=== PATIENT | female | born 1960 | race Hispanic/Latino ===

== ENCOUNTER 2019-12-30 15:33 | Observation (INO) | payer BC, OTHER ==
[~2019-12-30] VITALS: Ht 152.4 cm; Wt 68.3 kg
[2019-12-30 16:16] LABS: BASOPHILS % (AUTO) 0.9 % (0.0-5.0); EOSINOPHILS % (AUTO) 2.4 % (0.0-8.0); LYMPHOCYTES % (AUTO) 36.6 % (21.0-51.0); MEAN CORPUSCULAR HEMOGLOBIN 32.8 pg (27.0-33.0); MEAN CORPUSCULAR HGB CONC 34.8 g/dL (32.0-36.0); MEAN CORPUSCULAR VOLUME 94.2 fL (79-99); NEUTROPHILS % (AUTO) 51.7 % (40.0-77.0); PLATELET COUNT (AUTO) 233 K/uL (130-400); RED BLOOD CELL COUNT(AUTO) 4.67 MIL/uL (4.00-5.50); RED CELL DISTRIBUTION WIDTH 12.5 % (11.0-15.5)
[2019-12-30 16:20] LABS: CARBON DIOXIDE 32 mmol/L (21-32); CHLORIDE 105 mmol/L (101-111); CREATININE 1.1 mg/dL (0.5-1.5); GLOMERULAR FILTR. RATE CALC 54 mL/min (>60); GLUCOSE,RANDOM 98 mg/dL (70-105); POTASSIUM 4.2 mmol/L (3.5-5.1); SODIUM SERUM 139 mmol/L (136-145); UREA NITROGEN, BLOOD 12 mg/dL (7-18)
[2019-12-30 16:21] LABS: APPEARANCE,URINE Clear (CLEAR); BILIRUBIN,URINE Negative (NEGATIVE); COLOR,URINE Yellow (YELLOW); GLUCOSE, URINE (UA) Negative (NEGATIVE); KETONES,URINE Negative (NEGATIVE); LEUKOCYTE ESTERASE ,URINE Trace (NEGATIVE); NITRATE,URINE Negative (NEGATIVE); OCCULT BLOOD,URINE Negative (NEGATIVE); PROTEIN,URINE Negative (NEGATIVE)
[2019-12-30 16:25] LABS: ALANINE AMINOTRANSFERASE 31 U/L (12-78); ALBUMIN 3.6 g/dL (3.5-5.0); ALCOHOL, BLOOD < 3 mg/dL (0-10); ASPARTATE AMINOTRANSFERASE 16 U/L (10-37); BILIRUBIN,TOTAL 0.3 mg/dL (0.2-1.0); CREATINE KINASE, TOTAL 72 U/L (21-232); TOTAL PROTEIN, SERUM 6.7 g/dL (6.0-8.3)
[2019-12-30 16:27] LABS: RBC,URINE 0-1 /HPF (0-1)
[2019-12-30 16:28] LABS: BACTERIA,URINE Rare /HPF (None Seen); SQUAMOUS EPITHELIAL CELL,UR Few /HPF (0-2)
[2019-12-30 16:29] LABS: AMPHET/METH SCREEN,URINE NEGATIVE (NEGATIVE); BARBITURATE SCREEN, URINE NEGATIVE (NEGATIVE); BENZODIAZEPINES SCREEN,URINE NEGATIVE (NEGATIVE); CANNABINOID SCREEN,URINE NEGATIVE (NEGATIVE); COCAINE SCREEN,URINE NEGATIVE (NEGATIVE); OPIATE SCREEN,URINE NEGATIVE (NEGATIVE); PHENCYCLIDINE SCREEN,URINE NEGATIVE (NEGATIVE)
[2019-12-30 16:31] LABS: INR 0.88 (0.85-1.15); PARTIAL THROMBOPLASTIN TIME 23.8 SEC (26.3-35.5); PROTHROMBIN TIME 9.5 SEC (9.6-11.6)
[2019-12-30] MEDS ORDERED: ASPIRIN 325 MG TABLET ONE (17:07)
[2019-12-30] MEDS ORDERED: HYDRALAZINE HCL 20 MG/ML VIAL IV PRN (17:30)
[2019-12-30] MEDS ORDERED: IOHEXOL-350 75 ML VIAL IV ONE (17:39)
--- NOTE | 2019-12-30 18:40 | NUR ---
PATIENT ARRIVED TO ROOM AT 1840. PATIENT AWAKE AND ALERT. TRANSFERRED TO BED . TECH ALSO PRESENT TO PERFORM CAROTID DOPPLER .
[2019-12-30 19:00] VITALS: BP 135/81
[2019-12-30 19:03] LABS: HEMOGLOBIN A1C 5.3 % (4.0-6.0)
[2019-12-31] VITALS (7 sets, daily range): BP systolic 117–153; BP diastolic 76–88
[2019-12-31 04:50] LABS: HEMATOCRIT 41.9 % (36-48); MEAN CORPUSCULAR HEMOGLOBIN 32.3 pg (27.0-33.0); MEAN CORPUSCULAR HGB CONC 34.8 g/dL (32.0-36.0); MEAN CORPUSCULAR VOLUME 92.7 fL (79-99); RED BLOOD CELL COUNT(AUTO) 4.52 MIL/uL (4.00-5.50); RED CELL DISTRIBUTION WIDTH 12.5 % (11.0-15.5); WHITE BLOOD COUNT (AUTO) 6.7 K/uL (4.8-10.8)
[2019-12-31 05:02] LABS: INR 0.93 (0.85-1.15); PROTHROMBIN TIME 10.1 SEC (9.6-11.6)
[2019-12-31 05:14] LABS: ALANINE AMINOTRANSFERASE 20 U/L (12-78); ALBUMIN 3.1 g/dL (3.5-5.0); ASPARTATE AMINOTRANSFERASE 15 U/L (10-37); BILIRUBIN,TOTAL 0.4 mg/dL (0.2-1.0); CARBON DIOXIDE 31 mmol/L (21-32); CHLORIDE 106 mmol/L (101-111); CHOLESTEROL 172 mg/dL (<200); CREATINE KINASE, TOTAL 50 U/L (21-232); GLOMERULAR FILTR. RATE CALC 60 mL/min (>60); GLUCOSE,RANDOM 90 mg/dL (70-105); HDL CHOLESTEROL 70 mg/dL (35-85); LDL DIRECT 86 mg/dL (0-99); MYOGLOBIN 36 ng/mL (10-92); POTASSIUM 4.2 mmol/L (3.5-5.1); SODIUM SERUM 141 mmol/L (136-145); TOTAL PROTEIN, SERUM 6.1 g/dL (6.0-8.3); TRIGLYCERIDES 72 mg/dL (30-200); TROPONIN I < 0.04 ng/mL (0.00-0.06); UREA NITROGEN, BLOOD 13 mg/dL (7-18)
--- NOTE | 2019-12-31 09:00 | NUR ---
DYSPHAGIA EVNATASHA COMPLETED. -S/S OF ASPIRATION. RECOMMEND REGULAR TEXTURE, THIN LIQUIDS; PILLS WHOLE WITH LIQUIDS. Addendum: 01/01/20 at 0847 by FELICITA MARTINEZ, [facility] ST Amended: Links added.
--- NOTE | 2019-12-31 09:15 | NUR ---
COGNITIVE-LINGUISTIC EVALUATION COMPLETED. WITHIN FUNCTIONAL LIMITS. EVALUATION: Pt AAOX3. Pt REQUESTS WANTS AND NEEDS INDEPENDENTLY. Pt INTELLIGIBLE AT 100% ACCURACY TO THE UNFAMILIAR LISTENER. Pt COMMUNICATING AT CONVERSATIONAL LEVEL WITH NO DEFICITS IDENTIFIED AT THIS TIME. Pt COMPLETED COGNITIVE-LINGUISTIC EVALUATION TARGETING: ORIENTATION, ATTENTION/CONCENTRATION, MEMORY (IMMEDIATE, SHORT-TERM AND LONG-TERM), PROBLEM SOLVING, LOGIC/REASONING/INFERENCE, THOUGHT ORGANIZATION, FUNCTIONAL MATH AND TELLING TIME. Pt ABLE TO COMPLETE TASKS WITH CORRECT AND TIMELY ANSWERS TO ALL SECTIONS. MOTOR SPEECH G-CODES: [id number] Addendum: 01/01/20 at 0852 by FELICITA MARTINEZ [facility] Amended: Links added.
[2019-12-31] MEDS: FAMOTIDINE/PF 20 MG/2 ML VIAL IV SCH ×2 (09:54→20:27)
[2019-12-31] MEDS: ASPIRIN 81MG TAB.CHEW PO SCH (09:55)
[2019-12-31] MEDS: ACETAMINOPHEN 325 MG TAB PO PRN ×2 (09:59→20:28)
--- NOTE | 2019-12-31 13:00 | NUR ---
MET W PATIENT FOR D/C PLANNING STATES LIVES W DAUGHTER [place] [phone], IS ACTIVE, EMPLOYED, DRIVES, NO DME- STATES HAS TINGLING TO LEFT ARM, NEURO RESULTS SO FAR NEGATIVE PATIENT WHEN ASKS STATES LIFTS WEIGHTS. DCP HOME, NO DC NEEDS ANTICIPATED Addendum: 12/31/19 at 1441 by KALINA MONTERROSO RN CM Amended: Links added.
[2019-12-31] MEDS ORDERED: CLOPIDOGREL BISULFATE 75 MG TAB PO SCH (14:00)
--- NOTE | 2019-12-31 16:39 | NUR ---
RD NOTIFICATION Pt admitted with possible ischemic stroke. Diet held pending ST evaluation. Pt history of Talavera's Palsy, HTN. Overweight status. Monitored labs: Ca 8.4, Alb 3.1. Recommend follow Speech Therapy diet modification instructions RD to follow up with possible Stroke Nutrition education RD to continue to monitor. Please notify as additional nutrition concerns arise. Thank you.
[2019-12-31] MEDS ORDERED: ATORVASTATIN CALCIUM 20 MG TABLET PO SCH (21:00)
[2020-01-01 04:00] VITALS: BP 132/86
[2020-01-01 07:30] VITALS: BP 143/78
--- NOTE | 2020-01-01 08:00 | NUR ---
PT AAO X 3 REVIEW PLAN OF CARE. DENIES ANY DIZZNESS V/S REVIEW. NEURO .ASSESSMENT WITH NO RESIDUALS STRONG ARMS LEGS MOVEMENT . REVIEW FALL RISK AND CALL LIGHT IN REACH..
[2020-01-01] MEDS: FAMOTIDINE/PF 20 MG/2 ML VIAL IV SCH (08:17)
[2020-01-01] MEDS: ASPIRIN 81MG TAB.CHEW PO SCH (08:17)
[2020-01-01] MEDS ORDERED: CLOPIDOGREL BISULFATE 75 MG TAB PO SCH (09:00)
[2020-01-01 11:00] VITALS: BP 126/83
--- NOTE | 2020-01-01 15:00 | NUR ---
NUTRITION EDUCATION TRENA PROVIDED STROKE NUTRITION EDUCATION TO PATIENT PRIOR TO DISCHARGE. PT WAS RECEPTIVE TO NUTRITION HANDOUTS ALTHOUGH DEMONSTRATES KNOWLEDGE OF HEART HEALTHY DIET AND SHARES PLANNED WEIGHT LOSS ACHIEVED THROUGH HEALTHY DIET AND EXERCISE. Addendum: 01/01/20 at [address] Amended: Links added.
--- NOTE | 2020-01-01 16:00 | NUR ---
DISCHARGE PENDING NO V/S Addendum: 01/01/20 at 1655 by MAXIMUS WHITMORE RN RN Amended: Links added.
--- NOTE | 2020-01-01 16:05 | NUR ---
FOLLOW UP COMPLETED. Pt CURRENTLY AT BASELINE TOLERATING REGULAR TEXTURE, THIN LIQUID DIET WITH NO OVERT S/S OF ASPIRATION. SKILLED SPEECH THERAPY IS NOT WARRANTED AT THIS TIME. Addendum: 01/01/20 at 1607 by FELICITA MARTINEZ, [facility] Amended: Links added.
[2020-01-01] MEDS ORDERED: CLOP75TA14 PO (16:20)
[2020-01-01] MEDS ORDERED: ATOR20TA65 PO (16:20)
--- NOTE | 2020-01-01 16:45 | NUR ---
SL TO HER RAC WAS DC , NOTED NO HEMATOMA A SM PRESSURE DRSG APPLICATION ON.
--- NOTE | 2020-01-01 17:30 | NUR ---
DISCHARGE SUMMARY WAS REVIEW. AND FAMILY HERE , AND . DISCHARGE HOME.
== END 2020-01-01 18:20 | disposition home or self-care (01) ==
LOC: EDH 15:33 → EDHIP 17:22 → 3DH 18:08
PROVIDERS: ADMIT Family Medicine; ATTEND Family Medicine
DX: I63.9 Cerebral infarction, unspecified (principal); I16.0 Hypertensive urgency; I10 Essential (primary) hypertension; Z79.82 Long term (current) use of aspirin; Z79.899 Other long term (current) drug therapy
CPT/HCPCS: 36415 ×2; 70450; 70496; 70498; 70551; 71045; 80053 ×2; 80061; 80305; 81001; 82550 ×2; 82948; 83036; 83874; 84484 ×2; 85025; 85027; 85610 ×2; 85651; 85730; 92522; 92610; 93005; 93356; 93880; 96374; 96376 ×2; 99291; C8929; G0378 ×8; J3490 ×3; Q9967

== ENCOUNTER 2020-02-27 07:43 | Emergency (ER) | payer BC, OTHER ==
[~2020-02-27 07:43] MED LIST: ATOR20TA65 PO; CLOP75TA14 PO
== END 2020-02-27 08:20 | disposition home or self-care (01) ==
LOC: EDH 07:43
DX: G44.229 Chronic tension-type headache, not intractable (principal); R03.0 Elevated blood-pressure reading, without diagnosis of hypertension; E78.00 Pure hypercholesterolemia, unspecified; F41.9 Anxiety disorder, unspecified; Z86.73 Personal history of transient ischemic attack (TIA), and cerebral infarction without residual deficits; Z79.899 Other long term (current) drug therapy; Z98.51 Tubal ligation status
CPT/HCPCS: 93005

== ENCOUNTER 2020-08-03 08:31 | Emergency (ER) | payer BC ==
[2020-08-03 08:46] LABS: BASOPHILS % (AUTO) 1.2 % (0.0-5.0); EOSINOPHILS % (AUTO) 3.2 % (0.0-8.0); HEMATOCRIT 44.5 % (36-48); LYMPHOCYTES % (AUTO) 32.4 % (21.0-51.0); MEAN CORPUSCULAR HEMOGLOBIN 32.4 pg (27.0-33.0); MEAN CORPUSCULAR HGB CONC 34.8 g/dL (32.0-36.0); MEAN CORPUSCULAR VOLUME 93.1 fL (79-99); MONOCYTES % (AUTO) 8.3 % (3.0-13.0); NEUTROPHILS % (AUTO) 54.8 % (40.0-77.0); PLATELET COUNT (AUTO) 204 K/uL (130-400); RED BLOOD CELL COUNT(AUTO) 4.78 MIL/uL (4.00-5.50); RED CELL DISTRIBUTION WIDTH 12.9 % (11.0-15.5); WHITE BLOOD COUNT (AUTO) 6.8 K/uL (4.8-10.8)
[2020-08-03] MEDS ORDERED: NITROGLYCERIN 1GM/1 INCH PACKET TD ONE (08:52)
[2020-08-03] MEDS ORDERED: ALPRAZOLAM 0.25 MG TABLET ONE (08:53)
[2020-08-03 09:00] LABS: INR 0.98 (0.85-1.15); PROTHROMBIN TIME 10.7 SEC (9.6-11.6)
[2020-08-03 09:01] LABS: PARTIAL THROMBOPLASTIN TIME 23.5 SEC (26.3-35.5)
[2020-08-03 09:04] LABS: ALBUMIN 3.8 g/dL (3.5-5.0); BILIRUBIN,TOTAL 0.5 mg/dL (0.2-1.0); CREATININE 0.9 mg/dL (0.5-1.5); POTASSIUM 3.8 mmol/L (3.5-5.1)
== END 2020-08-03 11:29 | disposition home or self-care (01) ==
LOC: EDH 08:31
DX: R07.89 Other chest pain (principal); R51.9 Headache, unspecified; F41.9 Anxiety disorder, unspecified; I10 Essential (primary) hypertension; E78.00 Pure hypercholesterolemia, unspecified; Z86.73 Personal history of transient ischemic attack (TIA), and cerebral infarction without residual deficits; Z98.51 Tubal ligation status; Z79.899 Other long term (current) drug therapy
CPT/HCPCS: 36415; 71045; 80053; 82550; 84484; 85025; 85610; 85730; 93005

== ENCOUNTER 2020-11-01 12:56 | Emergency (ER) | payer BC ==
[2020-11-01 12:57] VITALS: BP 135/63
[2020-11-01 16:35] VITALS: BP 124/86
[2020-11-01 16:38] LABS: HEMATOCRIT 43.7 % (36-48); MEAN CORPUSCULAR HEMOGLOBIN 33.3 pg (27.0-33.0); MEAN CORPUSCULAR HGB CONC 34.8 g/dL (32.0-36.0); MEAN CORPUSCULAR VOLUME 95.8 fL (79-99); PLATELET COUNT (AUTO) 208 K/uL (130-400); RED BLOOD CELL COUNT(AUTO) 4.56 MIL/uL (4.00-5.50); RED CELL DISTRIBUTION WIDTH 13.1 % (11.0-15.5); WHITE BLOOD COUNT (AUTO) 6.3 K/uL (4.8-10.8)
[2020-11-01 16:50] LABS: CREATININE 0.8 mg/dL (0.5-1.5); POTASSIUM 3.6 mmol/L (3.5-5.1)
[2020-11-01 16:57] LABS: ALBUMIN 3.7 g/dL (3.5-5.0); BILIRUBIN,TOTAL 0.4 mg/dL (0.2-1.0); TOTAL PROTEIN, SERUM 6.8 g/dL (6.0-8.3)
[2020-11-01] MEDS ORDERED: ONDANSETRON 4MG INJ IVP ONE (17:00)
[2020-11-01] MEDS ORDERED: ACETAMINOPHEN 325 MG TAB PO ONE (17:00)
[2020-11-01 17:09] LABS: AMPHET/METH SCREEN,URINE NEGATIVE (NEGATIVE); BARBITURATE SCREEN, URINE NEGATIVE (NEGATIVE); BENZODIAZEPINES SCREEN,URINE NEGATIVE (NEGATIVE); CANNABINOID SCREEN,URINE NEGATIVE (NEGATIVE); COCAINE SCREEN,URINE NEGATIVE (NEGATIVE); OPIATE SCREEN,URINE NEGATIVE (NEGATIVE); PHENCYCLIDINE SCREEN,URINE NEGATIVE (NEGATIVE)
[2020-11-01 17:12] LABS: INR 0.95 (0.85-1.15); PROTHROMBIN TIME 10.4 SEC (9.6-11.6)
[2020-11-01 17:14] LABS: PARTIAL THROMBOPLASTIN TIME 23.9 SEC (26.3-35.5)
[2020-11-01 17:19] LABS: AMYLASE 64 U/L (25-115); CREATINE KINASE, TOTAL 58 U/L (21-232); LIPASE 118 U/L (114-286)
[2020-11-01 17:48] LABS: BAND NEUTROPHILS % (MANUAL) 1 % (0-2); EOSINOPHILS % (MANUAL) 2 % (1-6); LYMPHOCYTES % (MANUAL) 28 % (22-44); MAN.DIFF COMMENT-IMPRESSION MANUAL DIFFERENTIAL; MONOCYTES % (MANUAL) 13 % (2-9); REACTIVE LYMPHOCYTES 10 % (0-0); SEGMENTED NEUTROPHILS % 46 % (40-70)
[2020-11-01 19:32] LABS: MAGNESIUM 2.1 mg/dL (1.80-2.40); PHOSPHORUS 4.4 mg/dL (2.5-4.9)
[2020-11-01] MEDS ORDERED: MECL-160 PO (19:46)
[2020-11-01 20:20] VITALS: BP 124/84
== END 2020-11-01 20:21 | disposition home or self-care (01) ==
LOC: EDH 12:56
DX: R07.89 Other chest pain (principal); R51.9 Headache, unspecified; R20.2 Paresthesia of skin; R53.83 Other fatigue; Z20.822 Contact with and (suspected) exposure to COVID-19; I10 Essential (primary) hypertension; Z79.02 Long term (current) use of antithrombotics/antiplatelets; Z79.899 Other long term (current) drug therapy; Z86.73 Personal history of transient ischemic attack (TIA), and cerebral infarction without residual deficits
CPT/HCPCS: 36415; 70450; 71045; 80053; 80305; 82150; 82550; 83690; 83735; 83880; 84100; 84484 ×2; 85025; 85610; 85730; 87635; 87804 ×2; 87880; 93005; 99285; C9803; J2405

== ENCOUNTER 2020-12-19 16:09 | Inpatient (IN) | payer BC ==
[~2020-12-19] VITALS: Ht 149.9 cm; Wt 70.8 kg
[~2020-12-19 16:09] MED LIST changes: +MECL-160 PO
[2020-12-19 16:18] VITALS: BP 118/80
[2020-12-19 16:46] LABS: ABG BASE EXCESS 0.2 mmol/L (-2.0-3.0); ABG HCO3 23.5 mmol/L (21.0-28.0); ABG OXYGEN SATURATION 74.7 % (95.0-99.0); ABG PCO2 34 mmHg (32-45)
[2020-12-19 16:59] LABS: BASOPHILS % (AUTO) 0.1 % (0.0-5.0); HEMATOCRIT 43.3 % (36-48); LYMPHOCYTES % (AUTO) 11.2 % (21.0-51.0); MEAN CORPUSCULAR HEMOGLOBIN 33.5 pg (27.0-33.0); MEAN CORPUSCULAR HGB CONC 35.8 g/dL (32.0-36.0); MEAN CORPUSCULAR VOLUME 93.5 fL (79-99); NEUTROPHILS % (AUTO) 81.1 % (40.0-77.0); PLATELET COUNT (AUTO) 178 K/uL (130-400); RED BLOOD CELL COUNT(AUTO) 4.63 MIL/uL (4.00-5.50); RED CELL DISTRIBUTION WIDTH 12.2 % (11.0-15.5); WHITE BLOOD COUNT (AUTO) 7.1 K/uL (4.8-10.8)
[2020-12-19 17:06] LABS: ABG BASE EXCESS -0.1 mmol/L (-2.0-3.0); ABG HCO3 22.5 mmol/L (21.0-28.0); ABG OXYGEN SATURATION 95.1 % (95.0-99.0); ABG PCO2 32 mmHg (32-45)
[2020-12-19 17:14] LABS: CREATININE 0.9 mg/dL (0.5-1.5); POTASSIUM 3.7 mmol/L (3.5-5.1)
[2020-12-19 17:18] LABS: ALBUMIN 2.8 g/dL (3.5-5.0); BILIRUBIN,TOTAL 0.8 mg/dL (0.2-1.0); CRP QUANTITATIVE 104.9 mg/L (0.00-9.0); TOTAL PROTEIN, SERUM 6.7 g/dL (6.0-8.3)
[2020-12-19 17:21] LABS: B-TYPE NATRIURETIC PEPTIDE 17 pg/mL (0-100)
[2020-12-19] MEDS ORDERED: LACTATED RINGERS 1000ML 500 ML IV SCH (19:00)
[2020-12-19] MEDS ORDERED: ERGOCALCIFEROL (VITAMIN D2) 50,000 UNIT CAPSULE PO ONE (19:00)
[2020-12-19] MEDS ORDERED: [UNRECOGNIZED DRUG - OTHER] MISC SCH (19:00)
[2020-12-19] MEDS ORDERED: ACETAMINOPHEN 325 MG TAB PO PRN (19:00)
[2020-12-19] MEDS ORDERED: BARICITINIB MISC SCH (19:00)
[2020-12-19] MEDS ORDERED: COMPOUND IV REFRIGERATED 1 EACH IVSOLN MISC PRN (19:30)
[2020-12-19] MEDS ORDERED: REMDESIVIR (EUA) 520 200 MG in 0.9% NACL 250ML 250 ML IV SCH (20:00)
[2020-12-19] MEDS: DOXYCYCLINE 100MG+NS 250ML IV SCH (20:04)
[2020-12-19] MEDS: CEFTRIAXONE 1G VIAL IVP SCH (20:04)
[2020-12-19] MEDS: DEXAMETHASONE SOD PHOSPHATE 4 MG/ML 1ML VIAL IVP SCH (20:04)
[2020-12-19] MEDS: ALBUTEROL INHALER 90MCG/INH IH SCH (20:04)
[2020-12-19 20:53] VITALS: BP 96/65
[2020-12-20 00:53] VITALS: BP 103/60
[2020-12-20] MEDS: ALBUTEROL INHALER 90MCG/INH IH SCH ×4 (00:55→19:24)
[2020-12-20 05:02] LABS: BASOPHILS % (AUTO) 0.3 % (0.0-5.0); HEMATOCRIT 41.9 % (36-48); MEAN CORPUSCULAR HEMOGLOBIN 32.2 pg (27.0-33.0); MEAN CORPUSCULAR HGB CONC 34.8 g/dL (32.0-36.0); MEAN CORPUSCULAR VOLUME 92.5 fL (79-99); MONOCYTES % (AUTO) 4.3 % (3.0-13.0); NEUTROPHILS % (AUTO) 78.8 % (40.0-77.0); PLATELET COUNT (AUTO) 193 K/uL (130-400); RED BLOOD CELL COUNT(AUTO) 4.53 MIL/uL (4.00-5.50); RED CELL DISTRIBUTION WIDTH 12.2 % (11.0-15.5); WHITE BLOOD COUNT (AUTO) 3.3 K/uL (4.8-10.8)
[2020-12-20 05:15] LABS: ABG HCO3 24.1 mmol/L (21.0-28.0); ABG PCO2 36 mmHg (32-45)
[2020-12-20 05:16] LABS: ABG BASE EXCESS 0.6 mmol/L (-2.0-3.0)
[2020-12-20 05:21] LABS: ALBUMIN 2.5 g/dL (3.5-5.0); BILIRUBIN,TOTAL 0.6 mg/dL (0.2-1.0); CREATININE 0.9 mg/dL (0.5-1.5); CRP QUANTITATIVE 105.6 mg/L (0.00-9.0); TOTAL PROTEIN, SERUM 5.9 g/dL (6.0-8.3)
[2020-12-20] MEDS: REMDESIVIR LABS MISC SCH (06:00)
[2020-12-20 06:05] VITALS: BP 96/65
[2020-12-20] MEDS: DOXYCYCLINE 100MG+NS 250ML IV SCH ×2 (07:00→18:34)
[2020-12-20 08:30] VITALS: BP 94/57
[2020-12-20] MEDS: CEFTRIAXONE 1G VIAL IVP SCH ×2 (08:53→18:34)
[2020-12-20] MEDS: BARICITINIB (EUA) 2 MG TABLET PO SCH (08:53)
[2020-12-20] MEDS: FAMOTIDINE 20MG TAB PO SCH (08:53)
[2020-12-20] MEDS: ASCORBIC ACID 500 MG TAB PO SCH (08:54)
[2020-12-20] MEDS: BENZONATATE 100 MG CAPSULE PO PRN (08:59)
[2020-12-20] MEDS ORDERED: ENOXAPARIN SODIUM 40 MG/0.4 ML SYRINGE SQ SCH (09:00)
[2020-12-20] MEDS: ZINC SULFATE 220 CAPSULE PO SCH (09:07)
[2020-12-20] MEDS ORDERED: ONDANSETRON 4MG INJ ONE ×2 (12:08→18:25)
[2020-12-20 12:54] VITALS: BP 132/66
[2020-12-20] MEDS: GUAIFENESIN-DM 200/20 MG 10 ML PO PRN (12:54)
[2020-12-20] MEDS: DEXAMETHASONE SOD PHOSPHATE 4 MG/ML 1ML VIAL IVP SCH (18:34)
[2020-12-20] MEDS: REMDESIVIR (EUA) 520 100 MG in 0.9% NACL 250ML 250 ML IV SCH (20:46)
[2020-12-20] MEDS: ENOXAPARIN SODIUM 40 MG/0.4 ML SYRINGE SQ SCH (20:47)
[2020-12-20 23:42] VITALS: BP 93/53
[2020-12-21] MEDS: ALBUTEROL INHALER 90MCG/INH IH SCH ×4 (00:52→20:38)
[2020-12-21] MEDS: BENZONATATE 100 MG CAPSULE PO PRN (04:55)
[2020-12-21 04:57] VITALS: BP 102/73
[2020-12-21 05:28] LABS: HEMATOCRIT 39.9 % (36-48); LYMPHOCYTES % (AUTO) 12.7 % (21.0-51.0); MEAN CORPUSCULAR HEMOGLOBIN 33.1 pg (27.0-33.0); MEAN CORPUSCULAR HGB CONC 35.8 g/dL (32.0-36.0); MEAN CORPUSCULAR VOLUME 92.4 fL (79-99); MONOCYTES % (AUTO) 6.2 % (3.0-13.0); NEUTROPHILS % (AUTO) 80.3 % (40.0-77.0); PLATELET COUNT (AUTO) 225 K/uL (130-400); RED BLOOD CELL COUNT(AUTO) 4.32 MIL/uL (4.00-5.50); WHITE BLOOD COUNT (AUTO) 7.6 K/uL (4.8-10.8)
[2020-12-21 05:49] LABS: ALBUMIN 2.4 g/dL (3.5-5.0); BILIRUBIN,TOTAL 0.4 mg/dL (0.2-1.0); CREATININE 0.8 mg/dL (0.5-1.5); CRP QUANTITATIVE 43.9 mg/L (0.00-9.0); POTASSIUM 4.2 mmol/L (3.5-5.1)
[2020-12-21] MEDS: REMDESIVIR LABS MISC SCH (06:00)
[2020-12-21 08:00] VITALS: BP 101/62
[2020-12-21] MEDS: DOXYCYCLINE 100MG+NS 250ML IV SCH (08:32)
[2020-12-21] MEDS: CEFTRIAXONE 1G VIAL IVP SCH (08:32)
[2020-12-21] MEDS: BARICITINIB (EUA) 2 MG TABLET PO SCH (08:33)
[2020-12-21] MEDS: ZINC SULFATE 220 CAPSULE PO SCH (08:33)
[2020-12-21] MEDS: FAMOTIDINE 20MG TAB PO SCH (08:33)
[2020-12-21] MEDS: ASCORBIC ACID 500 MG TAB PO SCH (08:33)
[2020-12-21] MEDS: ENOXAPARIN SODIUM 40 MG/0.4 ML SYRINGE SQ SCH (08:34)
[2020-12-21] MEDS: GUAIFENESIN-DM 200/20 MG 10 ML PO PRN ×2 (09:30→16:00)
[2020-12-21 11:32] VITALS: BP 110/70
[2020-12-21 15:35] VITALS: BP 111/70
[2020-12-21] MEDS ORDERED: ACETAMINOPHEN 325 MG TAB PO PRN (18:30)
[2020-12-21 19:28] VITALS: BP 110/70
[2020-12-21] MEDS: DEXAMETHASONE SOD PHOSPHATE 4 MG/ML 1ML VIAL IVP SCH (20:38)
[2020-12-21] MEDS: REMDESIVIR (EUA) 520 100 MG in 0.9% NACL 250ML 250 ML IV SCH (20:38)
[2020-12-22] MEDS: ALBUTEROL INHALER 90MCG/INH IH SCH ×4 (00:48→20:55)
[2020-12-22 01:00] VITALS: BP 112/60
[2020-12-22] MEDS: REMDESIVIR LABS MISC SCH (06:00)
[2020-12-22 07:00] LABS: HEMATOCRIT 41.8 % (36-48); LYMPHOCYTES % (AUTO) 12.2 % (21.0-51.0); MEAN CORPUSCULAR HEMOGLOBIN 33.2 pg (27.0-33.0); MEAN CORPUSCULAR HGB CONC 35.6 g/dL (32.0-36.0); MEAN CORPUSCULAR VOLUME 93.1 fL (79-99); MONOCYTES % (AUTO) 5.6 % (3.0-13.0); NEUTROPHILS % (AUTO) 81.8 % (40.0-77.0); PLATELET COUNT (AUTO) 269 K/uL (130-400); RED BLOOD CELL COUNT(AUTO) 4.49 MIL/uL (4.00-5.50); WHITE BLOOD COUNT (AUTO) 6.8 K/uL (4.8-10.8)
[2020-12-22 07:26] LABS: ALBUMIN 2.5 g/dL (3.5-5.0); BILIRUBIN,TOTAL 0.4 mg/dL (0.2-1.0); CREATININE 0.8 mg/dL (0.5-1.5); CRP QUANTITATIVE 16.4 mg/L (0.00-9.0); POTASSIUM 4.1 mmol/L (3.5-5.1)
[2020-12-22 07:50] VITALS: BP 113/62
[2020-12-22] MEDS: CLOPIDOGREL 75MG TAB PO SCH (08:22)
[2020-12-22] MEDS: ASCORBIC ACID 500 MG TAB PO SCH (08:22)
[2020-12-22] MEDS: FAMOTIDINE 20MG TAB PO SCH (08:22)
[2020-12-22] MEDS: ZINC SULFATE 220 CAPSULE PO SCH (08:22)
[2020-12-22] MEDS: ENOXAPARIN SODIUM 40 MG/0.4 ML SYRINGE SQ SCH (08:23)
[2020-12-22] MEDS ORDERED: ALPR0.5T PO (09:53)
[2020-12-22] MEDS ORDERED: LISI-809 PO (09:53)
[2020-12-22] MEDS: BARICITINIB (EUA) 2 MG TABLET PO SCH (09:54)
[2020-12-22 11:40] VITALS: BP 114/70
[2020-12-22 16:00] VITALS: BP 112/69
[2020-12-22] MEDS ORDERED: ONDANSETRON 4MG INJ IVP PRN (16:30)
[2020-12-22 20:00] VITALS: BP 102/63
[2020-12-22] MEDS: DEXAMETHASONE SOD PHOSPHATE 4 MG/ML 1ML VIAL IVP SCH (20:49)
[2020-12-22] MEDS: REMDESIVIR (EUA) 520 100 MG in 0.9% NACL 250ML 250 ML IV SCH (20:49)
[2020-12-22] MEDS: GUAIFENESIN-DM 200/20 MG 10 ML PO PRN (21:06)
[2020-12-22 23:26] VITALS: BP 103/70
[2020-12-23] MEDS: ALBUTEROL INHALER 90MCG/INH IH SCH ×4 (01:34→19:47)
[2020-12-23] MEDS: GUAIFENESIN-DM 200/20 MG 10 ML PO PRN ×3 (01:34→19:46)
[2020-12-23 04:00] VITALS: BP 109/68
[2020-12-23 05:19] LABS: BASOPHILS % (AUTO) 0.1 % (0.0-5.0); EOSINOPHILS % (AUTO) 1.9 % (0.0-8.0); HEMATOCRIT 42.5 % (36-48); LYMPHOCYTES % (AUTO) 9.7 % (21.0-51.0); MEAN CORPUSCULAR HEMOGLOBIN 32.6 pg (27.0-33.0); MEAN CORPUSCULAR HGB CONC 34.6 g/dL (32.0-36.0); MEAN CORPUSCULAR VOLUME 94.2 fL (79-99); MONOCYTES % (AUTO) 5.9 % (3.0-13.0); NEUTROPHILS % (AUTO) 82.1 % (40.0-77.0); PLATELET COUNT (AUTO) 258 K/uL (130-400); RED BLOOD CELL COUNT(AUTO) 4.51 MIL/uL (4.00-5.50); RED CELL DISTRIBUTION WIDTH 12.2 % (11.0-15.5)
[2020-12-23 05:43] LABS: ALBUMIN 2.4 g/dL (3.5-5.0); BILIRUBIN,TOTAL 0.5 mg/dL (0.2-1.0); CREATININE 0.8 mg/dL (0.5-1.5); POTASSIUM 4.5 mmol/L (3.5-5.1); TOTAL PROTEIN, SERUM 5.7 g/dL (6.0-8.3)
[2020-12-23] MEDS: REMDESIVIR LABS MISC SCH (06:00)
[2020-12-23 08:00] VITALS: BP 100/59
[2020-12-23] MEDS: FAMOTIDINE 20MG TAB PO SCH (09:52)
[2020-12-23] MEDS: BARICITINIB (EUA) 2 MG TABLET PO SCH (09:52)
[2020-12-23] MEDS: ASCORBIC ACID 500 MG TAB PO SCH (09:52)
[2020-12-23] MEDS: ENOXAPARIN SODIUM 40 MG/0.4 ML SYRINGE SQ SCH (09:53)
[2020-12-23] MEDS: CLOPIDOGREL 75MG TAB PO SCH (09:53)
[2020-12-23] MEDS: ZINC SULFATE 220 CAPSULE PO SCH (09:53)
[2020-12-23 12:00] VITALS: BP 103/66
[2020-12-23 16:00] VITALS: BP 107/69
[2020-12-23] MEDS: DEXAMETHASONE SOD PHOSPHATE 4 MG/ML 1ML VIAL IVP SCH (19:47)
[2020-12-23] MEDS: REMDESIVIR (EUA) 520 100 MG in 0.9% NACL 250ML 250 ML IV SCH (19:47)
[2020-12-23 20:00] VITALS: BP 101/65
[2020-12-23 23:59] VITALS: BP 94/54
[2020-12-24] MEDS: ALBUTEROL INHALER 90MCG/INH IH SCH ×2 (01:00→06:12)
[2020-12-24 03:34] VITALS: BP 99/61
[2020-12-24 04:47] LABS: HEMATOCRIT 39.4 % (36-48); LYMPHOCYTES % (AUTO) 9.1 % (21.0-51.0); MEAN CORPUSCULAR HEMOGLOBIN 32.6 pg (27.0-33.0); MEAN CORPUSCULAR HGB CONC 35.5 g/dL (32.0-36.0); MEAN CORPUSCULAR VOLUME 91.8 fL (79-99); NEUTROPHILS % (AUTO) 85.1 % (40.0-77.0); PLATELET COUNT (AUTO) 275 K/uL (130-400); RED BLOOD CELL COUNT(AUTO) 4.29 MIL/uL (4.00-5.50); RED CELL DISTRIBUTION WIDTH 12.1 % (11.0-15.5); WHITE BLOOD COUNT (AUTO) 6.4 K/uL (4.8-10.8)
[2020-12-24 05:15] LABS: ALBUMIN 2.3 g/dL (3.5-5.0); BILIRUBIN,TOTAL 0.6 mg/dL (0.2-1.0); CREATININE 0.8 mg/dL (0.5-1.5); POTASSIUM 4.3 mmol/L (3.5-5.1); TOTAL PROTEIN, SERUM 5.5 g/dL (6.0-8.3)
[2020-12-24 08:00] VITALS: BP 106/63
[2020-12-24] MEDS ORDERED: APIX2.5T PO (08:51)
[2020-12-24] MEDS ORDERED: DEXA6TAB PO (08:51)
[2020-12-24] MEDS ORDERED: PANT40TA55 PO (08:51)
[2020-12-24] MEDS: ZINC SULFATE 220 CAPSULE PO SCH (09:25)
[2020-12-24] MEDS: ENOXAPARIN SODIUM 40 MG/0.4 ML SYRINGE SQ SCH (09:25)
[2020-12-24] MEDS: ASCORBIC ACID 500 MG TAB PO SCH (09:25)
[2020-12-24] MEDS: BARICITINIB (EUA) 2 MG TABLET PO SCH (09:25)
[2020-12-24] MEDS: CLOPIDOGREL 75MG TAB PO SCH (09:26)
[2020-12-24] MEDS: FAMOTIDINE 20MG TAB PO SCH (09:26)
[2020-12-24 09:36] LABS: HEMOGLOBIN A1C 5.8 % (4.0-6.0)
== END 2020-12-24 15:30 | disposition home or self-care (01) | DRG 177 ==
LOC: EDH 16:09 → EDHIP 18:42 → 4AH 12-22 13:45
PROVIDERS: ADMIT Internal Medicine; ATTEND Internal Medicine
PROC: XW033E5 Introduction of Remdesivir Anti-infective into Peripheral Vein, Percutaneous Approach, New Technology Group 5 (ICD-10-PCS; principal; 2020-12-19)
PROC: XW0DXM6 Introduction of Baricitinib into Mouth and Pharynx, External Approach, New Technology Group 6 (ICD-10-PCS; 2020-12-20)
DX: U07.1 COVID-19 (principal); J96.01 Acute respiratory failure with hypoxia; J12.82 Pneumonia due to coronavirus disease 2019; D68.69 Other thrombophilia; I10 Essential (primary) hypertension; E78.5 Hyperlipidemia, unspecified; E11.9 Type 2 diabetes mellitus without complications; E78.00 Pure hypercholesterolemia, unspecified; F41.9 Anxiety disorder, unspecified; E66.9 Obesity, unspecified; Z68.32 Body mass index [BMI] 32.0-32.9, adult; Z86.73 Personal history of transient ischemic attack (TIA), and cerebral infarction without residual deficits
CPT/HCPCS: 36415; 36600; 71045; 80053; 82803; 83036; 83605; 83615; 83880; 84145; 84484; 85025; 85378; 86140; 87040; 87635; 87804; 87880; 93005; 94760; C9803; G0378; J0696; J1100; J1650; J2405; J3490; J7050